=== PATIENT | female | born 1960 | race Caucasian/White ===

== ENCOUNTER → 2017-10-21 | Outpatient (CLI) | payer OTHER ==
[~2017-10-21] MED LIST: ACETAMINOPHEN-1 EAC1 PO; AZITHROMYCIN 2250 MG PO; DUONEB 2.5-0.5 M3 ML INH; MUCINEX TA600 MG/TA2 PO; PREDNISONE 20 M20 M1 PO
== END ==
LOC: M.RAD 13:56
DX: Z12.31 Encounter for screening mammogram for malignant neoplasm of breast (principal)

== ENCOUNTER → 2019-12-26 | Day surgery (SDC) | payer OTHER ==
[~2019-12-26] MED LIST changes: +LISINOPRIL10 MG PO; +NEURONTIN100 MG PO; +NORCO 5-325 TA1 EAC2 PO
--- NOTE | ~2019-12-26 | OP ---
[facility] [address] [place] [address] OPERATIVE REPORT Name: VIDAL GOTTI Room: [facility]#: [id number] Admission: 12/26/19 Attend Phys: Blair Martinez Discharge: Date of : 58 Report #: [id number] THIS REPORT FOR: //name// cc: Christian Lester MD, K. Gay MD ~ THIS REPORT FOR: //name// CC: Blair Lester DATE OF SERVICE: 12/26/2019 PREOPERATIVE DIAGNOSIS: Symptomatic cholelithiasis. POSTOPERATIVE DIAGNOSIS: Symptomatic cholelithiasis. OPERATION: Laparoscopic cholecystectomy with intraoperative cholangiogram. SURGEON: Blair Martinez MD ANESTHESIA: General. ESTIMATED BLOOD LOSS: Minimal. SPECIMEN: Gallbladder. DESCRIPTION OF PROCEDURE: After informed consent was obtained, the patient was brought to the operating room and placed supine. SCDs were placed and working, preoperative antibiotics were administered, general anesthesia was induced. The abdomen was prepped and draped in usual sterile fashion. A 10 mm incision was made below the umbilicus. Fascia was incised and a trocar was placed. Pneumoperitoneum was established. Three right upper quadrant 5 mm ports were placed. 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 These were lysed under direct vision with cautery. This allowed for good space to work. The patient was placed in the reverse Trendelenburg position. The gallbladder was grasped and retracted cephalad. Infundibulum was identified. She had a stone impacted in the infundibulum. Therefore, I elected to perform a cholangiogram out of an abundance of caution. The cystic duct and artery were identified. A ductotomy was made. Cholangiogram catheter was inserted. Cholangiogram was performed. This demonstrated filling of the very short cystic duct, common bile duct, common hepatic duct, bifurcation of the hepatics. There was flow into the duodenum. The common bile duct was somewhat enlarged at approximately 9 mm, but there were [facility] [address] [place] [address] OPERATIVE REPORT Name: VIDAL GOTTI Room: [facility].#: [id number] Admission: 12/26/19 Attend Phys: Blair Martinez Discharge: Date of : 58 Report #: [id number] no filling defects and the duodenum filled nicely. The cholangiogram catheter was removed. The cystic duct was ligated and it was clipped and ligated with a PDS Endoloop and single clip. Cystic artery was clipped and ligated leaving 2 clips on the remaining artery. Gallbladder was then taken off the liver bed with electrocautery. It was placed into an Endopouch and removed. The fascia was then closed with a [id number] 0 Vicryl. Skin was closed with 4-0 Monocryl. Incisions were sealed with Dermabond. COMPLICATIONS: None. DISPOSITION: The patient was taken to recovery in satisfactory condition. By: 1230 1300Jojoan Martinez MD /nt
[2019-12-26 09:38] LABS: HEMATOCRIT 45.3 % (37.0-47.0); HEMOGLOBIN 15.2 gm/dL (12.0-15.0); MCH 31.8 pg (26.0-34.0); MCHC 33.7 g/dL (28.0-37.0); MCV 94.5 fL (80.0-100.0); MPV 9.6 fl. (7.2-11.1); RBC 4.79 mil/uL (4.20-5.00); RDW-CV 13.4 % (10.5-14.5); WBC 9.3 thou/uL (4.0-11.0)
[2019-12-26 09:54] LABS: CALCIUM 9.5 mg/dL (8.5-10.1); CREATININE 0.8 mg/dL (0.6-1.3); POTASSIUM 4.4 mmol/L (3.5-5.1)
[2019-12-26 09:59] LABS: ALBUMIN 3.3 g/dL (3.4-5.0); TOTAL BILIRUBIN 0.3 mg/dL (<0.1-1.0); TOTAL PROTEIN 6.6 g/dL (6.4-8.2)
--- NOTE | 2019-12-26 14:13 | EKG ---
[place] [address] ELECTROCARDIOGRAM REPORT Name: ANA MARÍARODOLFOVIDAL Martita Room: [facility]#: [id number] Admission: 12/26/19 Attend Phys: Blair Rae Discharge: Date of : 58 Date of Service: 12/26/19901 Report #: [id number] THIS REPORT FOR: //name// [facility] Test Date: 2019-12-26 Test Time: 09:02:47 Pat Name: VIDAL GOTTI Department: Room: Gender: F Kitchen Utility Associate: [facility] [place] : 1960 Requested By: Blair Martinez Order Number: [id number] Jorgito MD: Killian Romero Measurements Intervals [place] Rate: 66 P: 49 [place]: 123 QRS: 27 QRSD: 87 T: 54 QT: 421 QTc: 442 Interpretive Statements Sinus rhythm No previous ECG available for comparison Electronically Signed On 12-26-2019 14:11:21 CDT by Killian Romero [email or web address] <ELECTRONICALLY SIGNED> By: Killian Romero MD, [facility] 12/26/19 141 1 09 Killian Romero MD, FACC /EPI
--- NOTE | 2019-12-28 11:07 | PATH ---
[address] [address] PATHOLOGY RPT PROCEDURE Name: VIDAL GOTTI Room: [facility].#: [id number] Admission: 12/26/19 Date of : 58 Discharge: Report #: [id number] Path Case #: [id number] [facility] Accession Number: [id number] . 01 Material submitted: . gallbladder - GALLBLADDER . 01 Clinical history: . Calculus of gallbladder . 02 Diagnosis: Gallbladder: - Chronic cholecystitis and cholelithiasis. (MU:james; 12/27/2019) [facility] 12/27/2019 1654 Local . 02 Electronically signed: . Harsha Goode MD, Pathologist NPI- [id number] . 01 Gross description: . The specimen is received in formalin, labeled "citlali Loyola". Received is an intact gallbladder measuring 7.8 x 2.1 x 1.8 cm in greatest dimensions displaying a pink-anderson to pink-lester serosal surface. Opening the specimen reveals a velvety, pale pink mucosa with a gallbladder wall thickness of 0.1 cm. Calculi are present displaying a light anderson and friable appearance, and no masses or lesions are noted grossly. Membership Advisor sections, to include the proximal margin, are submitted in cassette A1. (CAA; 12/26/2019) QA/QA 12/26/2019 1849 Local . 02 Pathologist provided ICD-10: K80.10 . 02 CPT . 792836 Specimen Comment: A courtesy copy of this report has been sent to [phone], [phone] Specimen Comment: 0012 Specimen Comment: Report sent to / DR CAO Performed at: [address] [id number] MD Ochoa Trimble MD Phone: [phone] Performed at: [facility] [address] [place], [place] [id number] [place] [address] PATHOLOGY RPT PROCEDURE Name: VIDAL GOTTI [facility] [id number] Admission: 12/26/19 Date of : 58 Discharge: Report #: [id number] Path Case #: [id number] MD Harsha Goode MD Phone: [phone]
== END | disposition home or self-care (01) ==
LOC: M.SUR 06:56
PROVIDERS: Surgery
DX: K80.10 Calculus of gallbladder with chronic cholecystitis without obstruction (principal); I10 Essential (primary) hypertension; F17.210 Nicotine dependence, cigarettes, uncomplicated; Z98.890 Other specified postprocedural states; Z79.899 Other long term (current) drug therapy; Z11.59 Encounter for screening for other viral diseases

== ENCOUNTER → 2020-12-23 | Outpatient (CLI) | payer OTHER | LOC: M.PC 08:17 | PROVIDERS: ATTEND Anesthesiology Pain Medicine | DX: G89.29 Other chronic pain (principal); M54.5 Low back pain; M54.10 Radiculopathy, site unspecified; I10 Essential (primary) hypertension ==

== ENCOUNTER → 2021-01-08 | Outpatient (CLI) | payer OTHER ==
[~2021-01-08] MED LIST changes: +ULTRAM 50MG TAB50 MG
== END | disposition home or self-care (01) ==
LOC: M.PC 11:42
PROVIDERS: ATTEND Anesthesiology Pain Medicine
DX: M54.16 Radiculopathy, lumbar region (principal); G89.29 Other chronic pain; I10 Essential (primary) hypertension; M10.9 Gout, unspecified; F17.210 Nicotine dependence, cigarettes, uncomplicated; Z98.890 Other specified postprocedural states; Z79.899 Other long term (current) drug therapy; Z90.49 Acquired absence of other specified parts of digestive tract